=== PATIENT | male | born 1995 | race Caucasian/White ===

== ENCOUNTER 2017-06-12 08:40 | Emergency (ER) | payer SELFPAY ==
[~2017-06-12] VITALS: Ht 180.3 cm; Wt 81.6 kg
[~2017-06-12 08:40] MED LIST: ACET1TAB12 PO; AMOX250S5; AMPH20CA3 PO; HYDR1TAB PO; PRM25T PO; SULF1TAB35 PO; TCD12.5U
[2017-06-12] MEDS ORDERED: DEXAMETHASONE 4 MG/ML SDV (DECADRON) IV ONE ×2 (09:15→12:00)
[2017-06-12] MEDS ORDERED: cefTRIAXone INJECTION 1,000 MG in NS (IVPB) 50 ML IV ONE (09:15)
[2017-06-12] MEDS ORDERED: NS 100 ML (IVPB) BAG IV ONE (09:30)
[2017-06-12] MEDS ORDERED: IOHEXOL 350 MG/ML 100 ML (OMNIPAQUE 350) VIAL IV ONE (09:30)
[2017-06-12 09:42] LABS: BASOPHILS # (AUTO) 0.1 10^3/uL (0.0-0.1); BASOPHILS % (AUTO) 0 % (0-10); EOSINOPHILS # (AUTO) 0.2 10^3/uL (0.0-0.3); EOSINOPHILS % (AUTO) 1 % (0-10); LYMPHOCYTES # (AUTO) 1.3 X 10^3 (1.0-4.0); LYMPHOCYTES % (AUTO) 9 % (12-44); MEAN CORPUSCULAR HEMOGLOBIN 30 PG (25-34); MEAN CORPUSCULAR HGB CONC 34 G/DL (32-36); MEAN CORPUSCULAR VOLUME 88 FL (80-99); MEAN PLATELET VOLUME 10.4 FL (7.4-10.4); MONOCYTES # (AUTO) 1.5 X 10^3 (0.0-1.0); MONOCYTES % (AUTO) 10 % (0-12); NEUTROPHILS # (AUTO) 11.4 X 10^3 (1.8-7.8); NEUTROPHILS % (AUTO) 79 % (42-75); PLATELET COUNT 175 10^3/uL (130-400); RED BLOOD COUNT 5.15 10^6/uL (4.35-5.85); RED CELL DISTRIBUTION WIDTH 12.7 % (10.0-14.5); WHITE BLOOD COUNT 14.5 10^3/uL (4.3-11.0)
--- NOTE | 2017-06-12 09:47 | ED EENT ---
History of Present Illness General Chief Complaint: Oral/Throat Problems Stated Complaint: SOB Nursing Triage Note: c/o sore throat with difficulty swallowing. Feels SOA at times. Onset 2-3 days ago. Source: patient History of Present Illness Time seen by provider: 08:59 Initial Comments C/O SORE THROAT FOR A FEW DAYS C/O HEADACHE C/O SHORTNESS OF BREATH LAST NIGHT--COULD NOT SLEEP AT ALL LAST NIGHT, DUE TO NOT BEING ABLE TO BREATHE WHEN HE LAYS DOWN NO KNOWN FEVER NO HISTORY OF SIMILAR TOOK 2 TYLENOL LAST PM WITHOUT RELIEF DOES HAVE A FRIEND WHO WAS RECENTLY DX WITH TONSILLITIS PCP: YEIMI-K Allergies and Home Medications Allergies Uncoded Allergies: NKDA (Allergy, Mild, 01/03/09) Home Medications Amphet Asp/Amphet/D-Amphet 20 Mg Cap.sr.24h, 20 MG PO DAILY, (Reported) Hydrocodone Bit/Acetaminophen 1 Each Tablet, 1 EACH PO PRN, #30 Prescribed by: SANIYA CEDENO on 04/20/13 0529 Review of Systems Constitutional: no symptoms reported Eyes: No Symptoms Reported Ears: No Symptoms Reported Nose: no symptoms reported Mouth: no symptoms reported Throat: see HPI, pain, swelling, hoarse, muffled, painful swallowing, denies difficulty with fluids Respiratory: see HPI Cardiovascular: no symptoms reported Gastrointestinal: no symptoms reported Musculoskeletal: no symptoms reported Skin: no symptoms reported Neurological: See HPI, Headache Hematologic/Lymphatic: No Symptoms Reported Immunological/Allergic: no symptoms reported Past Cpdsyyj-Yafwbh-Vggjee Hx Patient Social History Alcohol Use: Denies Use Recreational Drug Use: No Smoking Status: Current Everyday Smoker (< 1 PPD) Type Used: Cigarettes Recent Foreign Travel: No Contact w/Someone Who Travel: No Recent Infectious Disease Expo: No Surgeries History of Surgeries: No Respiratory History of Respiratory Disorde: No Cardiovascular History of Cardiac Disorders: No Neurological History of Neurological Disord: No Genitourinary History of Genitourinary Disor: No Gastrointestinal History of Gastrointestinal Di: No Musculoskeletal History of Musculoskeletal Dis: No Endocrine History of Endocrine Disorders: No HEENT History of HEENT Disorders: No Cancer History of Cancer: No Psychosocial History of Psychiatric Problem: Yes Behavioral Health Disorders: ADD/ADHD Integumentary History of Skin or Integumenta: No Blood Transfusions History of Blood Disorders: No Family Medical History Significant Family History: No Pertinent Family Hx Physical Exam Vital Signs Vital Sign - Last 12Hours 06/12/17 08:50 Temp 98.7 Pulse 90 Resp 16 B/P (MAP) 135/73 Pulse Ox 96 O2 Delivery Room Air General Appearance: WD/WN, no apparent distress Eyes: bilateral eye normal inspection, bilateral eye PERRL, bilateral eye EOMI Ears: left ear other (LEFT TM MILDLY INJECTED WITH EFFUSION) Mouth/Throat: No tonsillar exudate, tonsillar swelling (SIGNIFICANT SWELLING OF LEFT TONSIL AND PRETONSILLAR SOFT PALATE, WITH UVULAR SHIFT TO RIGHT--UVULA TOUCHING RIGHT TONSIL. 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, no motor/sensory deficits, alert, normal mood/affect, oriented x 3 Skin: normal color, warm/dry, No rash Progress/Results/Core Measures Results/Orders Lab Results Laboratory Tests Test 06/12/17 09:05 06/12/17 09:15 Range/Units Group A Streptococcus Screen NEGATIVE NEGATIVE White Blood Count 14.5 H 4.3-11.0 10^3/uL Red Blood Count 5.15 4.35-5.85 10^6/uL Hemoglobin 15.6 13.3-17.7 G/DL Hematocrit 45 40-54 % Mean Corpuscular Volume 88 80-99 FL Mean Corpuscular Hemoglobin 30 25-34 PG Mean Corpuscular Hemoglobin Concent 34 32-36 G/DL Red Cell Distribution Width 12.7 10.0-14.5 % Platelet Count 175 130-400 10^3/uL Mean Platelet Volume 10.4 7.4-10.4 FL Neutrophils (%) (Auto) 79 H 42-75 % Lymphocytes (%) (Auto) 9 L 12-44 % Monocytes (%) (Auto) 10 0-12 % Eosinophils (%) (Auto) 1 0-10 % Basophils (%) (Auto) 0 0-10 % Neutrophils # (Auto) 11.4 H 1.8-7.8 X 10^3 Lymphocytes # (Auto) 1.3 1.0-4.0 X 10^3 Monocytes # (Auto) 1.5 H 0.0-1.0 X 10^3 Eosinophils # (Auto) 0.2 0.0-0.3 10^3/uL Basophils # (Auto) 0.1 0.0-0.1 10^3/uL Neutrophils % (Manual) 74 % Lymphocytes % (Manual) 11 % Monocytes % (Manual) 11 % Eosinophils % (Manual) 0 % Basophils % (Manual) 0 % Band Neutrophils 4 % Blood Morphology Comment NORMAL Sodium Level 139 135-145 MMOL/L Potassium Level 3.5 L 3.6-5.0 MMOL/L Chloride Level 104 98-107 MMOL/L Carbon Dioxide Level 24 21-32 MMOL/L Anion Gap 11 5-14 MMOL/L Blood Urea Nitrogen 6 L 7-18 MG/DL Creatinine 0.78 0.60-1.30 MG/DL Estimat Glomerular Filtration Rate > 60 BUN/Creatinine Ratio 8 Glucose Level 105 70-105 MG/DL Lactic Acid Level 0.75 0.50-2.00 MMOL/L Calcium Level 9.7 8.5-10.1 MG/DL Total Bilirubin 1.1 H 0.1-1.0 MG/DL Aspartate Amino Transf (AST/SGOT) 12 5-34 U/L Alanine Aminotransferase (ALT/SGPT) 10 0-55 U/L Alkaline Phosphatase 85 40-136 U/L Total Protein 7.5 6.4-8.2 GM/DL Albumin 4.5 3.2-4.5 GM/DL Monoscreen NEGATIVE NEGATIVE My Orders Orders - JAMESPEYTON K DO Rapid Strep A Screen (06/12/17 09:03) Saline Lock/Iv-Start (06/12/17 09:15) Ct Neck (Soft Tissue) W (06/12/17 09:15) Cbc With Automated Diff (06/12/17 09:15) Comprehensive Metabolic Panel (06/12/17 09:15) Lactic Acid Analyzer (06/12/17 09:15) Monotest (06/12/17 09:15) Blood Culture (06/12/17 09:15) Ceftriaxone Injection (Rocephin Injectio (06/12/17 09:15) Dexamethasone Injection (Decadron Inject (06/12/17 09:15) Iohexol Injection (Omnipaque 350 Mg/Ml 1 (06/12/17 09:30) Ns (Ivpb) (Sodium Chloride 0.9% Ivpb Bag (06/12/17 09:30) Manual Differential (06/12/17 09:15) Fentanyl Injection (Sublimaze Injection (06/12/17 11:49) Saline Lock/Iv-Start (06/12/17 11:49) Lactated Ringers (Lr 1000 Ml Iv Solution (06/12/17 11:49) Dexamethasone Injection (Decadron Inject (06/12/17 12:00) Clindamycin Injection (Cleocin Injection (06/12/17 12:00) Medications Given in ED Current Medications Medications Dose Ordered Sig/Wyatt Route Start Time Stop Time Status Last Admin Dose Admin Ceftriaxone Sodium 1000 mg/ Sodium Chloride 50 ml @ 100 mls/hr ONCE ONCE IV 06/12/17 09:15 06/12/17 09:44 DC 06/12/17 09:44 100 MLS/HR Dexamethasone Sodium Phosphate 4 mg ONCE ONCE IV 06/12/17 09:15 06/12/17 09:17 DC 06/12/17 09:44 4 MG Iohexol 75 ml ONCE ONCE IV 06/12/17 09:30 06/12/17 09:31 DC 06/12/17 10:02 75 ML Sodium Chloride 100 ml ONCE ONCE IV 06/12/17 09:30 06/12/17 09:31 DC 06/12/17 09:46 100 ML Vital Signs/I&O Vital Sign - Last 12Hours 06/12/17 08:50 Temp 98.7 Pulse 90 Resp 16 B/P (MAP) 135/73 Pulse Ox 96 O2 Delivery Room Air Blood Pressure Mean: 93 Departure Communication (Admissions) Progress Notes [id number]--SPOKE WITH Lizette DICKSON NP, SENIOR MEDICAL DIRECTOR FOR DR. LINDQUIST. HE IS OUT OF TOWN TODAY AND WILL NEED TO SEND PT TO ANOTHER FACILITY. Impression Impression: Primary Impression: LEFT PERITONSILLAR ABSCESS Disposition: (DR. GOMEZ'S OFFICE) Condition: Stable Departure-Patient Inst. Referrals: [facility] (PCP/Family) Primary Care Physician DR. GOMEZ Patient Instructions: Peritonsillar Abscess, Adult (DC) Add. Discharge Instructions: GO DIRECTLY TO DR. GOMEZ'S OFFICE AT [facility] IN [place] WHEN YOU LEAVE THE ER, YOU ARE TO BE AT HIS OFFICE AT 1:00 PM DO NOT PUT ANYTHING PAST YOUR LIPS, NO SMOKING, NO CHEWING GUM, NO FOOD OR DRINK All discharge instructions reviewed with patient and/or family. Voiced understanding. PEYTON RAMIREZ DO Jun 12, 2017 09:47
[2017-06-12 10:06] LABS: ALANINE AMINOTRANSFERASE 10 U/L (0-55); ALBUMIN 4.5 GM/DL (3.2-4.5); ANION GAP 11 MMOL/L (5-14); ASPARTATE AMINO TRANSFERASE 12 U/L (5-34); BAND NEUTROPHILS 4 %; BASOPHILS % (MANUAL) 0 %; BILIRUBIN,TOTAL 1.1 MG/DL (0.1-1.0); BLOOD UREA NITROGEN 6 MG/DL (7-18); BUN/CREATININE RATIO 8; CALCIUM 9.7 MG/DL (8.5-10.1); CARBON DIOXIDE 24 MMOL/L (21-32); CHLORIDE 104 MMOL/L (98-107); CREATININE SERUM 0.78 MG/DL (0.60-1.30); EOSINOPHILS % (MANUAL) 0 %; GFR ESTIMATED > 60; GLUCOSE 105 MG/DL (70-105); LYMPHOCYTES % (MANUAL) 11 %; NEUTROPHILS % (MANUAL) 74 %; POTASSIUM 3.5 MMOL/L (3.6-5.0); SODIUM 139 MMOL/L (135-145); TOTAL PROTEIN 7.5 GM/DL (6.4-8.2)
--- NOTE | 2017-06-12 11:41 | Diagnostic Imaging Report ---
INDICATION: Left-sided neck swelling and difficulty swallowing. CT neck soft tissue is obtained with IV contrast bolus. There is extensive soft tissue swelling in the left peritonsillar region with a small central area of fluid-density measuring about 12 mm, compatible with peritonsillar abscess. This displaces and narrows the airway. There is edema and inflammatory change extending both cephalad and caudal to the probable abscess. There is soft tissue swelling obliterating the left piriform sinus. There appears to be some thickening of the left side of the epiglottis although the process is centered over the peritonsillar region. The parotid glands and submandibular glands are unremarkable. There are scattered mildly enlarged nodes in the posterior lymph node chains and submental regions on both sides, likely reactive in nature. IMPRESSION: Extensive inflammatory process centered over the left peritonsillar region with secondary involvement of the left side of the epiglottis and left piriform sinus region. Within this inflammatory process there is a central area of fluid-density and enhancement measuring 1.2 cm, compatible with abscess. These findings do cause significant narrowing of the airway in the oropharynx. There is some reactive adenopathy in the neck as above. Report was stat faxed to ER @ [facility] in [place], [place] @ 11:40 AM/donita. Dictated by: Dictated on workstation # [id number]
[2017-06-12] MEDS ORDERED: fentaNYL INJECTION 100 MCG/2 ML AMP IVP STA (11:49)
[2017-06-12] MEDS ORDERED: LACTATED RINGERS 1,000 ML IV ONE (11:49)
[2017-06-12] MEDS ORDERED: CLINDAMYCIN INJECTION 900 MG in NS (IVPB) 50 ML IV ONE (12:00)
[2017-06-12 12:34] VITALS: BP 128/70
== END 2017-06-12 12:34 | disposition short-term general hospital (02) ==
LOC: EDUNIT# 08:40 → ER 08:43
DX: J36 Peritonsillar abscess (principal); F90.9 Attention-deficit hyperactivity disorder, unspecified type; F17.210 Nicotine dependence, cigarettes, uncomplicated
CPT/HCPCS: 36415; 70491; 80053; 83605; 85007; 85027; 86308; 87040; 87430

== ENCOUNTER 2017-06-17 08:40 | Emergency (ER) | payer SELFPAY ==
[~2017-06-17] VITALS: Ht 180.3 cm; Wt 81.6 kg
--- NOTE | 2017-06-17 09:04 | ED EENT ---
History of Present Illness General Chief Complaint: Oral/Throat Problems Stated Complaint: ABSCESS ON TONSIL Source: patient Exam Limitations: no limitations History of Present Illness Time seen by provider: 09:02 Initial Comments This 19-year-old white male presents with progressive left peritonsillar abscess. He was seen here in the emergency department 5 days ago on Monday and placed on antibiotics and steroids. His peritonsillar abscess has progressed. Patient is able to handle his own secretions. However he has a hot potato voice. Patient denies associated significant headache, posterior neck pain or nuchal rigidity, or photophobia. I reviewed Dr. Grimm's notes from Monday and the patient was seen by Dr. kya in [place] who aspirated the purulent material from the abscess. The patient continued on clindamycin and methylprednisolone. The patient's abscess has grown and become more painful in the last 24 hours. Allergies and Home Medications Allergies Uncoded Allergies: NKDA (Allergy, Mild, 01/03/09) Home Medications Amphet Asp/Amphet/D-Amphet 20 Mg Cap.sr.24h, 20 MG PO DAILY, (Reported) Hydrocodone Bit/Acetaminophen 1 Each Tablet, 1 EACH PO PRN, #30 Prescribed by: SANIYA CEDENO on 04/20/13 0525 Review of Systems Constitutional: No chills, No fever Eyes: Denies Blurred Vision Ears: Denies Dizziness Nose: denies epistaxis Mouth: swelling (of the oral pharynx and left peritonsillar area) Throat: pain, hoarse, painful swallowing Respiratory: No cough Cardiovascular: No chest pain Gastrointestinal: No abdominal pain, No diarrhea, No vomiting Musculoskeletal: No back pain Skin: No change in color, No rash Neurological: No Symptoms Reported Hematologic/Lymphatic: No Symptoms Reported Immunological/Allergic: no symptoms reported Past Qdeusda-Jfysuz-Hehayb Hx Patient Social History Type Used: Cigarettes Recent Foreign Travel: No Contact w/Someone Who Travel: No Surgeries History of Surgeries: No Respiratory History of Respiratory Disorde: No Cardiovascular History of Cardiac Disorders: No Neurological History of Neurological Disord: No Genitourinary History of Genitourinary Disor: No Gastrointestinal History of Gastrointestinal Di: No Musculoskeletal History of Musculoskeletal Dis: No Endocrine History of Endocrine Disorders: No HEENT History of HEENT Disorders: No Cancer History of Cancer: No Psychosocial History of Psychiatric Problem: Yes Behavioral Health Disorders: ADD/ADHD Integumentary History of Skin or Integumenta: No Blood Transfusions History of Blood Disorders: No Reviewed Nursing Assessment Reviewed/Agree w Nursing PMH: Yes Family Medical History Significant Family History: No Pertinent Family Hx Physical Exam General Appearance: WD/WN, moderate distress Eyes: bilateral eye normal inspection Ears: bilateral ear auricle normal Nose: normal inspection Mouth/Throat: tonsillar swelling (there is a large left peritonsillar abscess present.) Neck: non-tender, full range of motion, supple Cardiovascular: normal peripheral pulses, regular rate, rhythm Respiratory: chest non-tender, lungs clear, normal breath sounds Gastrointestinal: normal bowel sounds, non tender, soft Neurologic/Psychiatric: no motor/sensory deficits, alert, normal mood/affect Skin: normal color, warm/dry, No rash Progress/Results/Core Measures Results/Orders Lab Results Laboratory Tests Test 06/17/17 09:35 Range/Units White Blood Count 19.6 H 4.3-11.0 10^3/uL Red Blood Count 5.20 4.35-5.85 10^6/uL Hemoglobin 15.6 13.3-17.7 G/DL Hematocrit 46 40-54 % Mean Corpuscular Volume 89 80-99 FL Mean Corpuscular Hemoglobin 30 25-34 PG Mean Corpuscular Hemoglobin Concent 34 32-36 G/DL Red Cell Distribution Width 12.7 10.0-14.5 % Platelet Count 190 130-400 10^3/uL Mean Platelet Volume 10.2 7.4-10.4 FL Neutrophils (%) (Auto) 78 H 42-75 % Lymphocytes (%) (Auto) 11 L 12-44 % Monocytes (%) (Auto) 10 0-12 % Eosinophils (%) (Auto) 1 0-10 % Basophils (%) (Auto) 0 0-10 % Neutrophils # (Auto) 15.4 H 1.8-7.8 X 10^3 Lymphocytes # (Auto) 2.1 1.0-4.0 X 10^3 Monocytes # (Auto) 2.0 H 0.0-1.0 X 10^3 Eosinophils # (Auto) 0.2 0.0-0.3 10^3/uL Basophils # (Auto) 0.1 0.0-0.1 10^3/uL Lactic Acid Level 1.39 0.50-2.00 MMOL/L My Orders Orders - HOANG, MARY JANE S MD Ct Neck (Soft Tissue) W (06/17/17 09:00) Cbc With Automated Diff (06/17/17 09:00) Blood Culture (06/17/17 09:00) Lactic Acid Analyzer (06/17/17 09:00) Ns Iv 1000 Ml (Sodium Chloride 0.9%) (06/17/17 09:00) Ceftriaxone Injection (Rocephin Injectio (06/17/17 09:00) Iohexol Injection (Omnipaque 350 Mg/Ml 1 (06/17/17 09:15) Ns (Ivpb) (Sodium Chloride 0.9% Ivpb Bag (06/17/17 09:15) Methylprednisolone Sod Succ (Solu-Medrol (06/17/17 09:15) Fentanyl Injection (Sublimaze Injection (06/17/17 09:15) Manual Differential (06/17/17 09:35) Medications Given in ED Current Medications Medications Dose Ordered Sig/Wyatt Route Start Time Stop Time Status Last Admin Dose Admin Fentanyl Citrate 50 mcg ONCE ONCE IVP 06/17/17 09:15 06/17/17 09:16 DC 06/17/17 09:46 50 MCG Iohexol 100 ml ONCE ONCE IV 06/17/17 09:15 06/17/17 09:16 DC 06/17/17 10:02 75 ML Methylprednisolone Sodium Succinate 125 mg ONCE ONCE IVP 06/17/17 09:15 06/17/17 09:16 DC 06/17/17 09:46 125 MG Sodium Chloride 100 ml ONCE ONCE IV 06/17/17 09:15 06/17/17 09:16 DC 06/17/17 10:03 80 ML Progress Note : Time: :17 Progress Note The patient was treated with fentanyl, Solu-Medrol, and 2 g Rocephin IV. I ordered a CT of the patient's neck. Blood cultures and CBC were drawn. An IV was established. The patient was transferred to Dr. Garner at [place] for anticipated incision and drainage of his left peritonsillar abscess. The patient was sent by private vehicle. Patient was transferred to [place] as our ENT was unavailable. Patient received 2 g Rocephin IV, 125 mg Solu-Medrol IV, and 50 g of fentanyl IV. The patient is agreeable to plan of transfer. Departure Impression Impression: Primary Impression: Peritonsillar abscess Disposition: 02 XFER SHT-TRM HOSP Condition: Improved Transfer Time Spoke to Accepting Phy: 10:[address] Garner, ENT, at [place]. Transfer call for the nurses is [phone] . Patient is to report to the emergency Department [place]. Departure-Patient Inst. Referrals: [facility] (PCP/Family) Primary Care Physician MARY JANE BOLTON MD Jun 17, 2017 09:04
[2017-06-17] MEDS: methylPREDNISolone 125 MG (Solu-MEDROL) VIAL IVP ONE (09:46)
[2017-06-17] MEDS: NS IV 1000 ML 1,000 ML IV SCH (09:46)
[2017-06-17] MEDS: fentaNYL INJECTION 100 MCG/2 ML AMP IVP ONE (09:46)
[2017-06-17 09:50] LABS: BASOPHILS # (AUTO) 0.1 10^3/uL (0.0-0.1); BASOPHILS % (AUTO) 0 % (0-10); EOSINOPHILS # (AUTO) 0.2 10^3/uL (0.0-0.3); EOSINOPHILS % (AUTO) 1 % (0-10); LYMPHOCYTES # (AUTO) 2.1 X 10^3 (1.0-4.0); LYMPHOCYTES % (AUTO) 11 % (12-44); MEAN CORPUSCULAR HEMOGLOBIN 30 PG (25-34); MEAN CORPUSCULAR HGB CONC 34 G/DL (32-36); MEAN CORPUSCULAR VOLUME 89 FL (80-99); MEAN PLATELET VOLUME 10.2 FL (7.4-10.4); MONOCYTES % (AUTO) 10 % (0-12); NEUTROPHILS # (AUTO) 15.4 X 10^3 (1.8-7.8); NEUTROPHILS % (AUTO) 78 % (42-75); PLATELET COUNT 190 10^3/uL (130-400); RED CELL DISTRIBUTION WIDTH 12.7 % (10.0-14.5); WHITE BLOOD COUNT 19.6 10^3/uL (4.3-11.0)
[2017-06-17] MEDS: IOHEXOL 350 MG/ML 100 ML (OMNIPAQUE 350) VIAL IV ONE (10:02)
[2017-06-17] MEDS: NS 100 ML (IVPB) BAG IV ONE (10:03)
--- NOTE | 2017-06-17 10:20 | Diagnostic Imaging Report ---
PROCEDURE: CT neck soft tissue with contrast. TECHNIQUE: Multiple contiguous axial images were obtained through the neck after the administration of contrast. INDICATION: Abscess, neck pain, dysphasia COMPARISON: 06/12/17 FINDINGS: Now seen is interval enlargement of the left peritonsillar abscess now measuring approximately 36 mm transverse x 22 mm anterior to posterior. Previously this measured approximately 12 mm. There is a significant mass effect on the oropharynx and airway. Lymphadenopathy and inflammatory change is seen within the deep spaces of the neck and left piriform sinus. The epiglottis is stable. True and false vocal cords are slightly edematous. Vascular structures are intact. The prevertebral soft tissues are stable. IMPRESSION: 1. Significant interval enlargement of the left peritonsillar abscess with significant mass effect on the airway. 2. Continued inflammatory change in the deep spaces of the neck extending into the left piriform sinus. There is reactive inflammatory change involving the true and false vocal cords. 3. Stable reactive bilateral cervical lymphadenopathy. Dictated by: Dictated on workstation # [id number]
[2017-06-17 10:24] LABS: EOSINOPHILS % (MANUAL) 2 %; LYMPHOCYTES % (MANUAL) 15 %; NEUTROPHILS % (MANUAL) 71 %
[2017-06-17] MEDS: cefTRIAXone INJECTION 2,000 MG in NS (IVPB) 50 ML IV ONE (10:55)
[2017-06-17 11:28] VITALS: BP 127/90
== END 2017-06-17 11:28 | disposition short-term general hospital (02) ==
LOC: EDUNIT# 08:40 → ER 08:42
DX: J39.0 Retropharyngeal and parapharyngeal abscess (principal); F90.9 Attention-deficit hyperactivity disorder, unspecified type
CPT/HCPCS: 36415; 70491; 83605; 85007; 85027; 87040

== ENCOUNTER → 2022-02-21 | Outpatient (CLI) | payer SELFPAY | LOC: LAB 16:05 | PROVIDERS: ATTEND Family Medicine | DX: Z98.52 Vasectomy status (principal) | CPT/HCPCS: 89321 ==

== ENCOUNTER 2022-09-04 13:11 | Emergency (ER) | payer SELFPAY ==
[~2022-09-04] VITALS: Ht 185 cm; Wt 86.0 kg
[2022-09-04 14:05] LABS: BILIRUBIN,URINE NEGATIVE (NEGATIVE); CLARITY,URINE CLEAR; COLOR,URINE YELLOW; GLUCOSE, URINE (UA) NEGATIVE (NEGATIVE); KETONES,URINE NEGATIVE (NEGATIVE); LEUKOCYTE ESTERASE ,URINE NEGATIVE (NEGATIVE); NITRITE,URINE NEGATIVE (NEGATIVE); PROTEIN,URINE NEGATIVE (NEGATIVE)
[2022-09-04 14:11] LABS: BACTERIA,URINE NEGATIVE /HPF; SQUAMOUS EPITHELIAL CELL,UR RARE /HPF
--- NOTE | 2022-09-04 14:11 | ED Psychosocial ---
General Chief Complaint: Suicidal Ideation Risk Stated Complaint: SUICIDAL THOUGHTS Nursing Triage Note: Patient ambulatory to ER w c/o suicide attempt. Last night patient states he had a gun to his hoahaoism and his dog snapped him out of it. He then called a friend who let him stay with her. Patient lives with brother. Brother not home at the time of incident. Patient states this was his first "attempt." he currently feels he wants to commit suicide. Feels like his "life is going to hell in a handbasket." patient denies being on any medication at this time. Source: patient Exam Limitations: no limitations History of Present Illness Date Seen by Provider: Sep 04, 2022 Time Seen by Provider: 13:13 Initial Comments 26-year-old male presents to the ER with reports of suicidal attempt last night. States he was drinking last night, went home and put a gun to his head. States he did a couple times and he was working up courage to kill himself. States his dog was what got him to stop, states that his dog was recently ill due to eating chocolate, and he was worried about leaving him if he killed himself. States he has a history of suicidal ideation, but denies previous attempts. States this was in the first suicide attempt. Denies any other attempt to self-harm/commit suicide, denies cutting self. States after he attempted last night, he called his friend who he had been hanging out with earlier in the night, and she let him stay overnight at her house. States he used to be on medication for depression back in 2013, states he stopped taking them due to his suicidal ideation getting worse. States he also had issues with housing, and had moved back to [place], and did not restart medications when he returned to [place]. States he does see a therapist at [facility]. States he has some support from his friends and family. Currently lives with his brother, but his brother was not at home last night. He states that if he were to leave here today he would go home and kill himself. States his plan is to use a gun. Denies any other suicidal plan. Denies homicidal ideation and hallucinations. States he drinks alcohol on the weekends and uses marijuana daily. Reports he used cocaine on New Year's, no recent cocaine use. Denies any other medical history, is not currently taking any medications. Denies fever/chills, headache, chest pain, shortness of air, abdominal pain, nausea/vomiting. Allergies and Home Medications Allergies Uncoded Allergies: NKDA (Allergy, Mild, 01/03/09) Patient Home Medication List Home Medication List Reviewed: Yes Amphet Asp/Amphet/D-Amphet (Adderall Xr 20 Mg Capsule) 20 Mg Cap.sr.24h, 20 MG PO DAILY, (Reported) Entered as Reported by: DIOGENES SERRANO on 04/19/13 1532 Hydrocodone Bit/Acetaminophen (Vicodin 5-500 Tablet) 1 Each Tablet, 1 EACH PO PRN Prescribed by: SANIYA CEDENO on 04/20/13 9975 Review of Systems Constitutional: see HPI Past Aijiqzb-Ylryfe-Uavbum Hx Patient Social History Tobacco Use?: Yes Use of E-Cig and/or Vaping dev: Yes Use of E-Cig and/or Vaping Myles: Current Everyday User Substance use?: Yes Substance type: Marijuana, Other Additional substance use comme: Cocaine 1x Substance frequency: Daily Alcohol Use?: Yes Alcohol Frequency: Couple times a week Past Medical History Surgeries: Yes Appendectomy, Tonsillectomy Respiratory: No Cardiac: No Neurological: No Genitourinary: No Gastrointestinal: No Musculoskeletal: No Endocrine: No HEENT: No Cancer: No Psychosocial: Yes ADD/ADHD, Anxiety, Depression Integumentary: No Blood Disorders: No Family Medical History No Pertinent Family Hx Physical Exam Vital Signs - First Documented 09/04/22 13:25 Temp 36.7 Pulse 70 Resp 18 B/P (MAP) 145/93 (110) Pulse Ox 99 O2 Delivery Room Air Capillary Refill : Less Than 3 Seconds Height, Weight, BMI Height: 5'11.00" Weight: 180lbs. oz. 81.335950at; 25.00 BMI Method:Estimated General Appearance: WD/WN, no apparent distress Neck: supple, normal inspection Respiratory: lungs clear, normal breath sounds, no respiratory distress, no a ccessory muscle use Cardiovascular: regular rate, rhythm, no edema, no gallop, no JVD, no murmur Extremities: normal range of motion, normal inspection Neurologic/Psychiatric: alert, oriented x 3, depressed affect Appearance/Memory: appropriate appearance, appropriate insight, neat, no memory impairment Behavior/Eye Contact: cooperative, normal speech, avoids eye contact Thoughts/Hallucinations: normal thought pattern, no apparent hallucination Skin: normal color, warm/dry Progress/Results/Core Measures Results/Orders Lab Results Laboratory Tests Test 09/04/22 14:00 09/04/22 14:10 09/04/22 14:40 Range/Units Urine Color YELLOW Urine Clarity CLEAR Urine pH 6.0 5-9 Urine Specific [place] >=1.030 1.016-1.022 Urine Protein NEGATIVE NEGATIVE Urine Glucose (UA) NEGATIVE NEGATIVE Urine Ketones NEGATIVE NEGATIVE Urine Nitrite NEGATIVE NEGATIVE Urine Bilirubin NEGATIVE NEGATIVE Urine Urobilinogen 0.2 < = 1.0 MG/DL Urine Leukocyte Esterase NEGATIVE NEGATIVE Urine RBC (Auto) NEGATIVE NEGATIVE Urine RBC NONE /HPF Urine WBC NONE /HPF Urine Squamous Epithelial Cells RARE /HPF Urine Crystals NONE /LPF Urine Bacteria NEGATIVE /HPF Urine Casts NONE /LPF Urine Mucus SMALL H /LPF Urine Culture Indicated NO Urine Opiates Screen NEGATIVE NEGATIVE Urine Oxycodone Screen NEGATIVE NEGATIVE Urine Methadone Screen NEGATIVE NEGATIVE Urine Propoxyphene Screen NEGATIVE NEGATIVE Urine Barbiturates Screen NEGATIVE NEGATIVE Ur Tricyclic Antidepressants Screen NEGATIVE NEGATIVE Urine Phencyclidine Screen NEGATIVE NEGATIVE Urine Amphetamines Screen NEGATIVE NEGATIVE Urine Methamphetamines Screen NEGATIVE NEGATIVE Urine Benzodiazepines Screen NEGATIVE NEGATIVE Urine Cocaine Screen POSITIVE H NEGATIVE Urine Cannabinoids Screen POSITIVE H NEGATIVE White Blood Count 9.2 4.3-11.0 10^3/uL Red Blood Count 5.33 4.30-5.52 10^6/uL Hemoglobin 15.6 13.3-17.7 g/dL Hematocrit 47 40-54 % Mean Corpuscular Volume 88 80-99 fL Mean Corpuscular Hemoglobin 29 25-34 pg Mean Corpuscular Hemoglobin Concent 33 32-36 g/dL Red Cell Distribution Width 11.9 10.0-14.5 % Platelet Count 226 130-400 10^3/uL Mean Platelet Volume 9.9 9.0-12.2 fL Immature Granulocyte % (Auto) 1 % Neutrophils (%) (Auto) 70 42-75 % Lymphocytes (%) (Auto) 19 12-44 % Monocytes (%) (Auto) 8 0-12 % Eosinophils (%) (Auto) 2 0-10 % Basophils (%) (Auto) 1 0-10 % Neutrophils # (Auto) 6.4 1.8-7.8 10^3/uL Lymphocytes # (Auto) 1.7 1.0-4.0 10^3/uL Monocytes # (Auto) 0.7 0.0-1.0 10^3/uL Eosinophils # (Auto) 0.2 0.0-0.3 10^3/uL Basophils # (Auto) 0.1 0.0-0.1 10^3/uL Immature Granulocyte # (Auto) 0.1 0.0-0.1 10^3/uL Sodium Level 139 135-145 MMOL/L Potassium Level 3.9 3.6-5.0 MMOL/L Chloride Level 103 98-107 MMOL/L Carbon Dioxide Level 24 21-32 MMOL/L Anion Gap 12 5-14 MMOL/L Blood Urea Nitrogen 12 7-18 MG/DL Creatinine 0.96 0.60-1.30 MG/DL Estimat Glomerular Filtration Rate 111 BUN/Creatinine Ratio 13 Glucose Level 88 70-105 MG/DL Calcium Level 9.8 8.5-10.1 MG/DL Corrected Calcium 8.5-10.1 MG/DL Total Bilirubin 0.7 0.1-1.0 MG/DL Aspartate Amino Transf (AST/SGOT) 19 5-34 U/L Alanine Aminotransferase (ALT/SGPT) 23 0-55 U/L Alkaline Phosphatase 91 40-136 U/L Total Protein 7.7 6.4-8.2 GM/DL Albumin 4.8 H 3.2-4.5 GM/DL TSH [place] Testing 0.86 0.35-4.94 UIU/ML Salicylates Level < 5.0 L 5.0-20.0 MG/DL Acetaminophen Level < 10 L 10-30 UG/ML Serum Alcohol < 10 <10 MG/DL SARS-CoV-2 RNA (RT-PCR) Not Detected Not Detecte My Orders Orders - CECIL GARCES APRN Ua Culture If Indicated (09/04/22 13:13) Cbc With Automated Diff (09/04/22 13:13) Comprehensive Metabolic Panel (09/04/22 13:13) Alcohol (09/04/22 13:13) Drug Screen Stat (Urine) (09/04/22 13:13) Acetaminophen (09/04/22 13:13) Salicylate (09/04/22 13:13) Thyroid Analyzer (09/04/22 13:13) Bh Status Checks/Observation O Q15M (09/04/22 13:49) Covid 19 Inhouse Test (09/04/22 14:38) General/Regular (09/04/22 Dinner) Vital Signs/I&O 09/04/22 09/04/22 13:25 18:46 Temp 36.7 37.0 Pulse 70 53 Resp 18 18 B/P (MAP) 145/93 (110) 149/96 (113) Pulse Ox 99 97 O2 Delivery Room Air Blood Pressure Mean: 110 Progress Progress Note #1: Time: 13:30 Progress Note Patient seen and evaluated, resting comfortably on the bed, no acute distress, depressed affect, mostly avoids eye contact. Based on exam and symptoms, concern for suicidal ideation and suicidal attempt. Work-up initiated including CBC, CMP, TSH, urine drug screen, UA, Tylenol level, salicylate level, alcohol level. Continuous 1:1 observation ordered. Will consult [facility] after lab results. Progress Note #2: Time: 15:33 Progress Note Lab results reviewed. CBC grossly normal, CMP grossly normal, albumin slightly elevated at 4.8. TSH within normal limits at 0.86. UDS positive for cocaine and cannabinoids. UA grossly normal, negative for infection. Negative for Tylenol, salicylates, alcohol. COVID swab negative. [facility] called for assessment. Progress Note #3: Time: 18:31 Progress Note Patient was assessed by mental health club steward via telehealth. [employer] thinks that patient may be able to go home if they can get a hold of the brother and secure the firearm. This provider reassessed patient. Patient thinks that he will be okay to go home with his brother because his brother will be home and his dog will be there. Patient states he will also be able to call his friend if he needs help. Progress Note #4: Time: 19:31 Progress Note CallThis provider spoke with patient's brother. Brother is currently removing all firearms, knives, medications from the home. Brother is comfortable with patient coming home with him. States he will be able to monitor patient. Spoke with patient again regarding discharge plan. Patient said he feels good to go home. Patient said he will not try to kill himself if he goes home. Patient states he and his brother will have a plan. Patient states he will call either his brother or his friend if he has thoughts of killing himself. Patient states he will come back to the ER if he has thoughts of killing himself. Patient will sign safety plan once it is received. Patient instructed to return to the ER the [facility] if he begins to have suicidal thoughts again. Departure Impression Primary Impression: Depression Additional Impression: Suicidal ideations Disposition: 01 HOME, SELF-CARE Condition: Stable Departure-Patient Inst. [facility] Primary Care Physician Patient Instructions: OUTPT MENTAL HEALTH SERVICES, Suicide Prevention Add. Discharge Instructions: Please return if you have any thoughts of killing yourself or harming herself. You may also call [phone] ([phone]). Please follow-up with your therapist at your scheduled appointment. You may call them to see if they can get you in sooner. Please follow the safety plan you made with the club steward. [facility] will do a welfare check with you this week. All discharge instructions reviewed with patient and/or family. Voiced understanding. CECIL GARCES APRN Sep 04, 2022 14:11
[2022-09-04 14:18] LABS: AMPHETAMINE SCREEN, URINE NEGATIVE (NEGATIVE); BARBITURATE SCREEN URINE NEGATIVE (NEGATIVE); BENZODIAZEPINES SCREEN URINE NEGATIVE (NEGATIVE); CANNABINOID SCREEN, URINE POSITIVE (NEGATIVE); COCAINE SCREEN URINE POSITIVE (NEGATIVE); METHADONE STAT NEGATIVE (NEGATIVE); OPIATE SCREEN URINE NEGATIVE (NEGATIVE); OXYCODONE STAT NEGATIVE (NEGATIVE); PROPOXYPHENE STAT NEGATIVE (NEGATIVE); TRICYCLIC ANTIDEPRESSANTS SCRE NEGATIVE (NEGATIVE)
[2022-09-04 14:18] LABS: BASOPHILS # (AUTO) 0.1 10^3/uL (0.0-0.1); BASOPHILS % (AUTO) 1 % (0-10); EOSINOPHILS # (AUTO) 0.2 10^3/uL (0.0-0.3); EOSINOPHILS % (AUTO) 2 % (0-10); HEMATOCRIT 47 % (40-54); HEMOGLOBIN 15.6 g/dL (13.3-17.7); LYMPHOCYTES # (AUTO) 1.7 10^3/uL (1.0-4.0); LYMPHOCYTES % (AUTO) 19 % (12-44); MEAN CORPUSCULAR HEMOGLOBIN 29 pg (25-34); MEAN CORPUSCULAR HGB CONC 33 g/dL (32-36); MEAN CORPUSCULAR VOLUME 88 fL (80-99); MEAN PLATELET VOLUME 9.9 fL (9.0-12.2); MONOCYTES # (AUTO) 0.7 10^3/uL (0.0-1.0); MONOCYTES % (AUTO) 8 % (0-12); NEUTROPHILS # (AUTO) 6.4 10^3/uL (1.8-7.8); NEUTROPHILS % (AUTO) 70 % (42-75); PLATELET COUNT 226 10^3/uL (130-400); WHITE BLOOD COUNT 9.2 10^3/uL (4.3-11.0)
[2022-09-04 14:28] LABS: ALBUMIN 4.8 GM/DL (3.2-4.5); CHLORIDE 103 MMOL/L (98-107); POTASSIUM 3.9 MMOL/L (3.6-5.0); SODIUM 139 MMOL/L (135-145)
[2022-09-04 14:29] LABS: CALCIUM 9.8 MG/DL (8.5-10.1)
[2022-09-04 14:30] LABS: GLUCOSE 88 MG/DL (70-105); TOTAL PROTEIN 7.7 GM/DL (6.4-8.2)
[2022-09-04 14:31] LABS: CARBON DIOXIDE 24 MMOL/L (21-32)
[2022-09-04 14:32] LABS: BILIRUBIN,TOTAL 0.7 MG/DL (0.1-1.0)
[2022-09-04 14:34] LABS: ALKALINE PHOSPHATASE 91 U/L (40-136); CREATININE SERUM 0.96 MG/DL (0.60-1.30); GFR ESTIMATED 111
[2022-09-04 14:35] LABS: BUN/CREATININE RATIO 13
[2022-09-04 14:37] LABS: ALANINE AMINOTRANSFERASE 23 U/L (0-55); SALICYLATE < 5.0 MG/DL (5.0-20.0)
[2022-09-04 14:39] LABS: ACETAMINOPHEN < 10 UG/ML (10-30)
[2022-09-04 20:16] VITALS: BP 132/89
== END 2022-09-04 20:16 | disposition home or self-care (01) ==
LOC: EDUNIT# 13:11 → ER 13:13
DX: R45.851 Suicidal ideations (principal); F32.A Depression, unspecified; R77.0 Abnormality of albumin; F17.290 Nicotine dependence, other tobacco product, uncomplicated; Z28.310 Unvaccinated for COVID-19; Z20.822 Contact with and (suspected) exposure to COVID-19
CPT/HCPCS: 80053; 80306; 81000; 84443; 85025; 87636; G0480 ×3; 36415; 80320; 80329